=== PATIENT | male | born 1985 | race Asian ===

== ENCOUNTER 2017-11-01 11:09 | Emergency (ER) | payer MEDICAID, OTHER ==
[~2017-11-01] VITALS: Ht 160 cm; Wt 63.5 kg
[2017-11-01 11:13] VITALS: Ht 160 cm; Wt 63.5 kg
[2017-11-01 12:44] VITALS: BP 136/74
== END 2017-11-01 12:44 | disposition home or self-care (01) ==
LOC: ED 11:09
DX: S00.91XA Abrasion of unspecified part of head, initial encounter (principal); I10 Essential (primary) hypertension; V29.9XXA Motorcycle rider (driver) (passenger) injured in unspecified traffic accident, initial encounter; Y93.89 Activity, other specified; Y92.89 Other specified places as the place of occurrence of the external cause; Y99.8 Other external cause status
CPT/HCPCS: J1885